=== PATIENT | female | born 1980 | race Caucasian/White ===

== ENCOUNTER 2021-04-27 15:04 | Outpatient (REF) | payer OTHER, SELFPAY ==
--- NOTE | ~2021-04-27 | MR_ITS ---
EXAMINATION: MR BRAIN WITHOUT AND WITH CONTRAST CLINICAL INFORMATION: Trigeminal neuralgia. COMPARISON: No relevant prior imaging. TECHNIQUE: Multiplanar MR imaging of the brain was performed without and with contrast. A total of 8 mL Gadavist was utilized for this examination. FINDINGS: Dedicated high-resolution imaging through the posterior fossa reveals no cerebellopontine angle cistern mass. Both of the superior cerebellar arteries have a relatively tortuous course and causes abutment on the superior surfaces of the cisternal segments of the trigeminal nerves, greater on the left. Cavernous sinuses and Meckel's caves are unremarkable. There is no abnormal enhancement along the cisternal segments of the fifth, seventh, or eighth cranial nerves. Labyrinthine structures are morphologically normal. No mastoid middle ear effusion. No abnormal petrous temporal bone enhancement. Postcontrast images of the whole brain reveal no abnormal mass or enhancement elsewhere within the intracranial compartment. No intracranial mass effect or midline shift. No abnormal extra-axial collection. Lateral and third ventricles are normal. No hydroceles. Midline structures including the cervicomedullary junction are normal. No acute bone marrow signal changes. There is no acute territorial infarct. Intracranial vascular flow voids are grossly maintained. MR/MR head/brain wo/w con IMPRESSION: The superior cerebellar arteries have a relatively tortuous course within the posterior fossa and cause abutment along the superior surfaces of the cisternal segments of both trigeminal nerves, greater on the left. Otherwise unremarkable examination.
== END 2021-04-27 15:05 | disposition home or self-care (01) ==
LOC: HO.MRI 15:04
PROVIDERS: PCP Internal Medicine; Visit Provider Psychiatry & Neurology Neurology
DX: G50.0 Trigeminal neuralgia (principal)
CPT/HCPCS: 70553; A9585